=== PATIENT | female | born 1985 | race Two or more races ===

== ENCOUNTER 2018-07-05 14:42 | Emergency (ER) | payer OTHER ==
[~2018-07-05] VITALS: Ht 157.5 cm; Wt 68.2 kg
--- NOTE | 2018-07-05 16:37 | REP ---
Chest x-ray: Two views. History: Shortness of breath . Comparison study: No comparison study . Findings: The lungs are well inflated and free of infiltrate. The pleural angles are sharp. The heart size is normal. Pulmonary vasculature is not increased. No significant bony abnormality is seen. Impression: Negative chest x-ray. Electronically Signed by Chung Goddard MD 07/05/2018 04:28 P
[2018-07-05 17:57] LABS: INFLUENZA A AMPLIFICATION NEGATIVE (NEGATIVE); INFLUENZA B AMPLIFICATION NEGATIVE (NEGATIVE)
[2018-07-05 18:08] VITALS: BP 108/63
== END 2018-07-05 18:09 | disposition home or self-care (01) ==
LOC: M ED 14:42
DX: J06.9 Acute upper respiratory infection, unspecified (principal)

== ENCOUNTER 2023-02-25 10:45 | Day surgery (SDC) | payer OTHER ==
[~2023-02-25] VITALS: Ht 160 cm; Wt 78.7 kg
[~2023-02-25 10:45] MED LIST: DOXY-444 PO; MEDR4PAK; PSEU120T3 PO
[2023-02-25] MEDS ORDERED: LIDOCAINE 1% SDV 5ML VIAL SC PRN (11:35)
[2023-02-25] MEDS ORDERED: LR 1,000 ML IV SCH ×2 (11:35→17:55)
[2023-02-25 12:06] LABS: HEMATOCRIT 38.6 % (36.0-47.0)
[2023-02-25 12:46] LABS: HCG, SERUM QUALITATIVE NEGATIVE (NEGATIVE)
[2023-02-25] MEDS ORDERED: ROCURONIUM BROMIDE 50MG/5ML VIAL As Ordered ONE (14:38)
[2023-02-25] MEDS ORDERED: KETOROLAC 60MG 2ML VIAL As Ordered ONE (14:39)
[2023-02-25] MEDS ORDERED: propofoL 200 MG/20 ML VIAL As Ordered ONE (14:39)
[2023-02-25] MEDS ORDERED: ONDANSETRON 4MG 2ML VIAL As Ordered ONE (14:39)
[2023-02-25] MEDS ORDERED: ACETAMINOPHEN 1000MG 100ML IV BAG As Ordered ONE (14:39)
[2023-02-25] MEDS ORDERED: LIDOCAINE 2% 100MG/5ML SDV (FOR ANES.) As Ordered ONE (14:39)
[2023-02-25] MEDS ORDERED: fentaNYL 100 MCG/2 ML INJECTION As Ordered ONE ×3 (14:42→17:55)
[2023-02-25] MEDS ORDERED: MIDAZOLAM INJ 2MG/2ML VIAL As Ordered ONE (14:42)
[2023-02-25] MEDS ORDERED: SUGAMMADEX SODIUM 500 MG/5 ML VIAL (BRIDION) As Ordered ONE (15:14)
[2023-02-25] MEDS ORDERED: ePHEDrine SULFATE 25 MG/5 ML(5MG/ML) SYRINGE As Ordered ONE (16:55)
[2023-02-25] MEDS ORDERED: METHYLENE BLUE 0.5% (5MG/ML) 10 ML AMP (PROVAYBLUE) As Ordered ONE (17:07)
[2023-02-25] MEDS ORDERED: DOXYCYCLINE HYCLATE 100MG/10ML VIAL As Ordered ONE (17:23)
[2023-02-25] MEDS ORDERED: fentaNYL 100 MCG/2 ML INJECTION IV PRN (17:55)
[2023-02-25] MEDS ORDERED: oxyCODONE 5MG TAB PO PRN (17:55)
[2023-02-25] MEDS ORDERED: MORPHINE 2 MG/ML 1ML VIAL IV PRN (17:55)
[2023-02-25] MEDS ORDERED: ONDANSETRON 4MG 2ML VIAL IV PRN (17:55)
[2023-02-25] MEDS: HYDROMORPHONE HCL 0.5 MG/ 0.5 ML SYRINGE IV PRN ×2 (18:06→18:14)
[2023-02-25 19:15] VITALS: BP 128/76; TEMP 97.9; O2SAT 100
== END 2023-02-25 19:29 | disposition home or self-care (01) ==
LOC: M SDC 10:45
PROVIDERS: ATTEND Obstetrics & Gynecology
DX: N97.1 Female infertility of tubal origin (principal); N84.1 Polyp of cervix uteri; Z88.8 Allergy status to other drugs, medicaments and biological substances
CPT/HCPCS: 36415; 58350; 58558; 84703; 85014; 85018; 88305; J0131; J0665; J1100; J1170; J1885; J2250; J2405; J3010; Q9968